=== PATIENT | male | born 1960 | race African-American/Black ===

== ENCOUNTER → 2018-03-02 12:40 | Outpatient (CLI) | payer MEDICARE ==
[2014-06-20 08:53] VITALS: BMI 29.5
[~2018-03-02 12:40] MED LIST: HYDROCODONE-APA1 TAB PO; LISINOPRIL10 MG PO; NORCO 10/325 TA1 TA1 PO; PRILOSEC20 MG PO; PROVENTIL/2.5 MG/3 M INH; TYLENOL325 MG PO
== END | disposition home or self-care (01) ==
LOC: D.CT 03-01 08:30
DX: R04.2 Hemoptysis (principal)

== ENCOUNTER 2018-06-05 09:52 | Inpatient (IN) | payer MEDICARE ==
[~2018-06-05] VITALS: Ht 182.9 cm; Wt 90.7 kg
[2018-06-05 11:12] LABS: BASOPHILS 0.3 % (0-2); EOSINOPHILS 0.2 % (0-7); HEMATOCRIT 41.1 % (42.0-54.0); HEMOGLOBIN 14.6 g/dL (13.5-17.5); IMMATURE GRANULOCYTES 0.3 % (0-5); LYMPHOCYTES 21.2 % (15-50); MCH 29.4 pg (26.0-34.0); MCHC 35.5 g/dL (31.0-37.0); MCV 82.9 fL (80.0-100.0); MEAN PLATELET VOLUME 10.4 fL (7.4-10.4); MONOCYTES 5.2 % (2-11); NEUTROPHILS 72.8 % (40-80); PLATELET COUNT 196 10x3/uL (130-400); RBC 4.96 10x6/uL (4.20-6.10); RDW 13.9 % (11.5-14.5); WBC 9.3 10x3/uL (4.8-10.8)
[2018-06-05 11:25] LABS: INR 0.94 (0.85-1.17); PROTIME 12.2 SECONDS (11.6-15.0)
[2018-06-05 11:28] LABS: ALBUMIN 4.4 g/dL (3.4-5.0); ALKALINE PHOSPHATASE 74 U/L (46-116); ALT (SGPT) 29 U/L (10-68); BILIRUBIN - TOTAL 0.85 mg/dL (0.2-1.3); CALC OSMOLALITY 271 mosm/kg (275-300); CALCIUM 9.3 mg/dL (8.5-10.1); CARBON DIOXIDE 20.6 mmol/L (21.0-32.0); CHLORIDE - SERUM 100 mmol/L (98-107); CREATININE - SERUM 0.9 mg/dL (0.6-1.3); GLUCOSE 88 mg/dL (74-106); POTASSIUM - SERUM 4.2 mmol/L (3.5-5.1); PROTEIN - SERUM 8.1 g/dL (6.4-8.2); SODIUM 136 mmol/L (136-145); UREA NITROGEN 16 mg/dL (7-18); eGFR NON AFRICAN AMERICAN > 90 mL/min (90-120)
[2018-06-05 11:30] VITALS: BP 164/90
[2018-06-05 11:41] VITALS: BP 169/92
[2018-06-05 11:42] LABS: CKMB 3.2 U/L (0.0-3.6); CREATINE KINASE 371 UL (21-232)
[2018-06-05 11:43] LABS: TROPONIN-I < 0.017 ng/mL (0.000-0.060)
[2018-06-05 12:30] VITALS: BP 163/96
[2018-06-05 14:07] LABS: CREATINE KINASE 420 UL (21-232); TROPONIN-I < 0.017 ng/mL (0.000-0.060)
[2018-06-05 14:09] LABS: CKMB 3.6 U/L (0.0-3.6)
[2018-06-05 14:41] VITALS: BP 152/93
[2018-06-05 16:08] VITALS: BP 168/84; BMI 27.2
[2018-06-05 19:44] LABS: CKMB 3.9 U/L (0.0-3.6); CREATINE KINASE 454 UL (21-232)
[2018-06-05 19:46] LABS: TROPONIN-I < 0.017 ng/mL (0.000-0.060)
[2018-06-05 21:00] VITALS: BP 136/82
[2018-06-06 01:50] LABS: CKMB 3.5 U/L (0.0-3.6); CREATINE KINASE 477 UL (21-232); TROPONIN-I < 0.017 ng/mL (0.000-0.060)
[2018-06-06 05:02] VITALS: BP 153/96
[2018-06-06 05:59] LABS: BASOPHILS 0.1 % (0-2); EOSINOPHILS 0.4 % (0-7); HEMATOCRIT 38.3 % (42.0-54.0); HEMOGLOBIN 13.4 g/dL (13.5-17.5); IMMATURE GRANULOCYTES 0.1 % (0-5); LYMPHOCYTES 27.6 % (15-50); MCH 28.8 pg (26.0-34.0); MCV 82.4 fL (80.0-100.0); MEAN PLATELET VOLUME 10.7 fL (7.4-10.4); MONOCYTES 7.4 % (2-11); NEUTROPHILS 64.4 % (40-80); PLATELET COUNT 220 10x3/uL (130-400); RBC 4.65 10x6/uL (4.20-6.10); RDW 13.6 % (11.5-14.5); WBC 11.4 10x3/uL (4.8-10.8)
[2018-06-06 06:24] LABS: ALBUMIN 3.5 g/dL (3.4-5.0); ALKALINE PHOSPHATASE 66 U/L (46-116); ALT (SGPT) 26 U/L (10-68); BILIRUBIN - TOTAL 1.37 mg/dL (0.2-1.3); CALCIUM 8.7 mg/dL (8.5-10.1); CHLORIDE - SERUM 100 mmol/L (98-107); CREATININE - SERUM 0.9 mg/dL (0.6-1.3); GLUCOSE 101 mg/dL (74-106); MAGNESIUM - SERUM 1.9 mg/dL (1.8-2.4); PHOSPHOROUS 3.6 mg/dL (2.5-4.9); POTASSIUM - SERUM 3.7 mmol/L (3.5-5.1); PROTEIN - SERUM 7.4 g/dL (6.4-8.2); SODIUM 134 mmol/L (136-145); eGFR NON AFRICAN AMERICAN > 90 mL/min (90-120)
[2018-06-06 06:31] LABS: CALC OSMOLALITY 266 mosm/kg (275-300); TROPONIN-I < 0.017 ng/mL (0.000-0.060); UREA NITROGEN 11 mg/dL (7-18)
[2018-06-06 09:44] VITALS: BP 175/92
[2018-06-06 12:35] VITALS: Ht 182.9 cm; Wt 90.7 kg
[2018-06-06 17:03] LABS: CKMB 2.3 U/L (0.0-3.6); CREATINE KINASE 421 UL (21-232)
[2018-06-06 17:06] LABS: TROPONIN-I < 0.017 ng/mL (0.000-0.060)
[2018-06-06 17:42] VITALS: BP 183/62
[2018-06-06 20:00] VITALS: BP 136/92
[2018-06-07 06:20] VITALS: BP 159/93
[2018-06-07 06:35] LABS: BASOPHILS 0.1 % (0-2); EOSINOPHILS 0.3 % (0-7); HEMATOCRIT 38.6 % (42.0-54.0); HEMOGLOBIN 13.5 g/dL (13.5-17.5); IMMATURE GRANULOCYTES 0.2 % (0-5); LYMPHOCYTES 25.6 % (15-50); MCH 28.8 pg (26.0-34.0); MCV 82.5 fL (80.0-100.0); MEAN PLATELET VOLUME 10.5 fL (7.4-10.4); MONOCYTES 9.2 % (2-11); NEUTROPHILS 64.6 % (40-80); PLATELET COUNT 213 10x3/uL (130-400); RBC 4.68 10x6/uL (4.20-6.10); RDW 13.7 % (11.5-14.5); WBC 9.7 10x3/uL (4.8-10.8)
[2018-06-07 06:55] LABS: ALBUMIN 3.5 g/dL (3.4-5.0); ALKALINE PHOSPHATASE 65 U/L (46-116); ALT (SGPT) 23 U/L (10-68); CALC OSMOLALITY 270 mosm/kg (275-300); CALCIUM 8.6 mg/dL (8.5-10.1); CARBON DIOXIDE 25.3 mmol/L (21.0-32.0); CHLORIDE - SERUM 102 mmol/L (98-107); CREATININE - SERUM 0.7 mg/dL (0.6-1.3); GLUCOSE 105 mg/dL (74-106); MAGNESIUM - SERUM 1.9 mg/dL (1.8-2.4); POTASSIUM - SERUM 3.9 mmol/L (3.5-5.1); PROTEIN - SERUM 7.4 g/dL (6.4-8.2); SODIUM 136 mmol/L (136-145); UREA NITROGEN 10 mg/dL (7-18); eGFR NON AFRICAN AMERICAN > 90 mL/min (90-120)
[2018-06-07 09:33] VITALS: BP 180/80
[2018-06-07] MEDS ORDERED: COLACE100 MG PO (12:22)
[2018-06-07] MEDS ORDERED: NORCO 10-325 TA1 TAB PO (12:24)
[2018-06-07 14:17] VITALS: BP 141/92
== END 2018-06-07 15:08 | disposition home or self-care (01) | DRG 185 ==
LOC: D.ER 09:52 → D.EDHOLD 12:57 → D.MS 15:10
PROVIDERS: Family Medicine
DX: S22.41XA Multiple fractures of ribs, right side, initial encounter for closed fracture (principal); V47.6XXA Car passenger injured in collision with fixed or stationary object in traffic accident, initial encounter; R07.89 Other chest pain; I10 Essential (primary) hypertension; J44.9 Chronic obstructive pulmonary disease, unspecified; K21.9 Gastro-esophageal reflux disease without esophagitis; Z87.891 Personal history of nicotine dependence

== ENCOUNTER 2019-01-21 14:30 | Emergency (ER) | payer MEDICARE ==
[~2019-01-21] VITALS: Ht 182.9 cm; Wt 91.8 kg
[~2019-01-21 14:30] MED LIST changes: +COLACE100 MG PO; +NORCO 10-325 TA1 TAB PO
[2019-01-21 14:33] VITALS: Ht 182.9 cm; Wt 91.8 kg
[2019-01-21 15:06] LABS: BASOPHILS 0.4 % (0-2); EOSINOPHILS 0.7 % (0-7); HEMATOCRIT 40.6 % (42.0-54.0); HEMOGLOBIN 14.2 g/dL (13.5-17.5); IMMATURE GRANULOCYTES 0.1 % (0-5); LYMPHOCYTES 37.3 % (15-50); MCH 28.7 pg (26.0-34.0); MCV 82.2 fL (80.0-100.0); MEAN PLATELET VOLUME 10.5 fL (7.4-10.4); MONOCYTES 6.9 % (2-11); NEUTROPHILS 54.6 % (40-80); PLATELET COUNT 209 10x3/uL (130-400); RBC 4.94 10x6/uL (4.20-6.10); RDW 13.4 % (11.5-14.5); WBC 8.6 10x3/uL (4.8-10.8)
[2019-01-21 15:38] LABS: ALBUMIN 3.9 g/dL (3.4-5.0); ALKALINE PHOSPHATASE 82 U/L (46-116); ALT (SGPT) 27 U/L (10-68); BILIRUBIN - TOTAL 0.66 mg/dL (0.2-1.3); CALC OSMOLALITY 259 mosm/kg (275-300); CALCIUM 8.9 mg/dL (8.5-10.1); CARBON DIOXIDE 23.2 mmol/L (21.0-32.0); CHLORIDE - SERUM 99 mmol/L (98-107); CREATININE - SERUM 0.8 mg/dL (0.6-1.3); GLUCOSE 96 mg/dL (74-106); POTASSIUM - SERUM 4.1 mmol/L (3.5-5.1); PROTEIN - SERUM 7.8 g/dL (6.4-8.2); SODIUM 130 mmol/L (136-145); UREA NITROGEN 9 mg/dL (7-18); eGFR NON AFRICAN AMERICAN > 90 mL/min (90-120)
[2019-01-21 16:04] LABS: UDS - AMPHET NEGATIVE QUAL (NEGATIVE); UDS - BARB NEGATIVE QUAL (NEGATIVE); UDS - BENZO NEGATIVE QUAL (NEGATIVE); UDS - COCAINE NEGATIVE QUAL (NEGATIVE); UDS - OPIATE NEGATIVE QUAL (NEGATIVE); UDS - PCP NEGATIVE QUAL (NEGATIVE); UDS - THC POSITIVE QUAL (NEGATIVE)
[2019-01-21 16:05] LABS: CKMB 2.1 U/L (0.0-3.6); CREATINE KINASE 288 UL (21-232); TROPONIN-I < 0.017 ng/mL (0.000-0.060)
[2019-01-21 16:28] LABS: APPEARANCE CLEAR (CLEAR); BILIRUBIN NEGATIVE (NEGATIVE); COLOR YELLOW (YELLOW); GLUCOSE NEGATIVE (NEGATIVE); KETONE NEGATIVE (NEGATIVE); NITRITE NEGATIVE (NEGATIVE); PROTEIN NEGATIVE (NEGATIVE); UROBILINOGEN NORMAL (NORMAL)
[2019-01-21 16:32] LABS: BACTERIA FEW /hpf (NONE SEEN); WHITE CELLS - URINE 0-5 /hpf (0-5)
[2019-01-21 17:37] VITALS: BP 163/97
== END 2019-01-21 17:24 | disposition home or self-care (01) ==
LOC: D.ER 14:30
PROVIDERS: Family Medicine
DX: R55 Syncope and collapse (principal); V49.9XXA Car occupant (driver) (passenger) injured in unspecified traffic accident, initial encounter; Y92.410 Unspecified street and highway as the place of occurrence of the external cause

== ENCOUNTER 2019-03-04 11:41 | Inpatient (IN) | payer MEDICARE ==
[~2019-03-04] VITALS: Ht 182.9 cm; Wt 83.9 kg
[2019-03-04 12:09] LABS: BASOPHILS 0.1 % (0-2); EOSINOPHILS 0.2 % (0-7); HEMATOCRIT 37.8 % (42.0-54.0); HEMOGLOBIN 13.5 g/dL (13.5-17.5); IMMATURE GRANULOCYTES 0.3 % (0-5); LYMPHOCYTES 19.8 % (15-50); MCH 28.9 pg (26.0-34.0); MCHC 35.7 g/dL (31.0-37.0); MCV 80.9 fL (80.0-100.0); MEAN PLATELET VOLUME 10.1 fL (7.4-10.4); MONOCYTES 6.4 % (2-11); NEUTROPHILS 73.2 % (40-80); PLATELET COUNT 204 10x3/uL (130-400); RBC 4.67 10x6/uL (4.20-6.10); RDW 13.3 % (11.5-14.5); WBC 10.7 10x3/uL (4.8-10.8)
[2019-03-04 12:27] LABS: ALBUMIN 3.6 g/dL (3.4-5.0); ALKALINE PHOSPHATASE 81 U/L (46-116); ALT (SGPT) 27 U/L (10-68); CALCIUM 8.9 mg/dL (8.5-10.1); CARBON DIOXIDE 23.7 mmol/L (21.0-32.0); CHLORIDE - SERUM 103 mmol/L (98-107); CREATININE - SERUM 0.8 mg/dL (0.6-1.3); GLUCOSE 106 mg/dL (74-106); PROTEIN - SERUM 7.2 g/dL (6.4-8.2); SODIUM 136 mmol/L (136-145); eGFR NON AFRICAN AMERICAN > 90 mL/min (90-120)
[2019-03-04 12:34] LABS: CALC OSMOLALITY 270 mosm/kg (275-300); UREA NITROGEN 10 mg/dL (7-18)
[2019-03-04 13:38] VITALS: BP 169/106
[2019-03-04 14:48] VITALS: BP 185/106
--- NOTE | 2019-03-04 14:50 | NUR ---
DR DOMINIC NYE FOR ELEVATED BP AND RUANO
--- NOTE | 2019-03-04 14:52 | NUR ---
REPORT CALLED TO [facility]ANDANA SPRING BY SBAR FORMAT
--- NOTE | 2019-03-04 15:10 | NUR ---
TRANSPORTED TO FLOOR VIA , CONDITION STABLE
[2019-03-04] MEDS ORDERED: COZAAR25 MG PO (15:13)
[2019-03-04 15:22] VITALS: BP 162/89; BMI 25.1
--- NOTE | 2019-03-04 16:37 | NUR ---
NEURO CHECKS WNL. BILAT SCDS ON ORDERED. WILL CONT. PLAN OF CARE.
--- NOTE | 2019-03-04 19:12 | NUR ---
EVENING ROUNDS MADE. PT DENIES PAIN AT THIS TIME. PT STATED HE NEEDED TO GO TO THE BATHROOM. ASSISTED THE PT TO THE BATHROOM WITH STAND BY ASSIST DUE TO FALL RISK/FALL HX. PT ASSISTED BACK TO BED AND RECONNECTED TO SCD. DENIES FURTHER COMPLAINTS AT THIS TIME. FALL PRECAUTIONS IN PLACE. WHITE BED ALARM ON. YELLOW GOWN ON. NON SKID SOCKS IN PLACE. BED LOWERED AND LOCKED. CL IN REACH. WILL CTM.
[2019-03-04 20:00] VITALS: BP 137/92
--- NOTE | 2019-03-04 20:48 | NUR ---
VITALS STABLE. PT LAYING IN BED RESTING. JAY FROM RT NOTIFIED ME THAT SHE PUT PT ON 2L O2 VIA NC DUE TO PT STATING THAT HE WEARS O2 AT NIGHT AT HOME. ALSO GAVE PT A CLEAN URINAL AND INFORMED PT THAT I NEEDED TO COLLECT A URINE SAMPLE TO USE THE URINAL AND LET ME KNOW SOON HE DOES. PT AGREED WITH POC. NO FURTHER CONCERNS AT THIS TIME. FALL PRECAUTIONS IN PLACE. BED LOWERED AND LOCKED. CL IN REACH. NON SKID SOCKS ON, YELLOW GOWN ON. WILL CTM.
[2019-03-04 21:51] LABS: APPEARANCE CLEAR (CLEAR); BILIRUBIN NEGATIVE (NEGATIVE); COLOR YELLOW (YELLOW); GLUCOSE NEGATIVE (NEGATIVE); KETONE NEGATIVE (NEGATIVE); NITRITE NEGATIVE (NEGATIVE); PROTEIN NEGATIVE (NEGATIVE); UROBILINOGEN NORMAL (NORMAL)
[2019-03-04 21:54] LABS: BACTERIA FEW /hpf (NONE SEEN); RED CELLS - URINE OCC /hpf (0-5); WHITE CELLS - URINE 0-5 /hpf (0-5)
[2019-03-04 21:56] LABS: UDS - AMPHET NEGATIVE QUAL (NEGATIVE); UDS - BARB NEGATIVE QUAL (NEGATIVE); UDS - BENZO NEGATIVE QUAL (NEGATIVE); UDS - COCAINE NEGATIVE QUAL (NEGATIVE); UDS - OPIATE NEGATIVE QUAL (NEGATIVE); UDS - PCP NEGATIVE QUAL (NEGATIVE); UDS - THC POSITIVE QUAL (NEGATIVE)
[2019-03-04 22:31] LABS: CREATINE KINASE 497 UL (21-232); TROPONIN-I < 0.017 ng/mL (0.000-0.060)
[2019-03-05] VITALS (9 sets, daily range): BP systolic 120–185; BP diastolic 63–104; Ht 182.9 cm; Wt 83.9 kg
--- NOTE | 2019-03-05 04:21 | NUR ---
ORTHOSTATIC BP LAYING 143/87 SITTING 139/90 STANDING 149/104
[2019-03-05 04:39] LABS: BASOPHILS 0.2 % (0-2); HEMATOCRIT 35.6 % (42.0-54.0); HEMOGLOBIN 12.5 g/dL (13.5-17.5); IMMATURE GRANULOCYTES 0.1 % (0-5); MCH 28.5 pg (26.0-34.0); MCHC 35.1 g/dL (31.0-37.0); MCV 81.3 fL (80.0-100.0); MEAN PLATELET VOLUME 10.8 fL (7.4-10.4); NEUTROPHILS 48.7 % (40-80); PLATELET COUNT 214 10x3/uL (130-400); RBC 4.38 10x6/uL (4.20-6.10); RDW 13.3 % (11.5-14.5); WBC 8.7 10x3/uL (4.8-10.8)
[2019-03-05 05:11] LABS: CALC OSMOLALITY 276 mosm/kg (275-300); CALCIUM 8.4 mg/dL (8.5-10.1); CARBON DIOXIDE 25.8 mmol/L (21.0-32.0); CHLORIDE - SERUM 104 mmol/L (98-107); CHOL - HDL RATIO 2.9 ratio (2.3-4.9); CHOLESTEROL, TOTAL 117 mg/dL (0-200); CKMB 3.1 U/L (0.0-3.6); CREATINE KINASE 472 UL (21-232); CREATININE - SERUM 0.9 mg/dL (0.6-1.3); GLUCOSE 110 mg/dL (74-106); HDL CHOLESTEROL 41 mg/dL (32-96); LDL CHOLESTEROL 61 mg/dL (0-100); LDL-HDL RATIO 1.5 ratio (1.5-3.5); MAGNESIUM - SERUM 1.9 mg/dL (1.8-2.4); PHOSPHOROUS 4.1 mg/dL (2.5-4.9); POTASSIUM - SERUM 3.4 mmol/L (3.5-5.1); SODIUM 139 mmol/L (136-145); THYROID STIMULATING HORMONE 1.54 uIU/mL (0.36-3.74); TRIGLYCERIDE 78 mg/dL (30-200); TROPONIN-I < 0.017 ng/mL (0.000-0.060); UREA NITROGEN 8 mg/dL (7-18); eGFR NON AFRICAN AMERICAN > 90 mL/min (90-120)
--- NOTE | 2019-03-05 10:00 | NUR ---
ALERT AND ORIENTED X4. SITTING UP IN BED. 20G SITED TO LT HAND FOR CTA. NOTIFY RUSSELL, RT IV PLACED. DENIES ANY NEEDS AT THIS TIME. DENIES DIZZINESS. REFUSE NICOTINE PATCH. PATIENT STATES, "I DON'T SMOKE." CONTINUE PLAN OF CARE AND SAFETY PRECAUTIONS.
[2019-03-05 10:33] LABS: CKMB 2.1 U/L (0.0-3.6); CREATINE KINASE 422 UL (21-232)
[2019-03-05 10:44] LABS: POTASSIUM - SERUM 4.2 mmol/L (3.5-5.1); TROPONIN-I < 0.017 ng/mL (0.000-0.060)
--- NOTE | 2019-03-05 19:05 | NUR ---
PT WILL GET UP FOR SHOWER AND REQUEST ONE IV SITE REMOVED BED LOW AND LOCKED SRX2 AND CALL LIGHT IS IN REACH
--- NOTE | 2019-03-05 19:52 | NUR ---
REMOVED IV FROM RIGHT HAND CATH INTACT AND BANDAGE WITH GAUZE AFTER HOLDING PRESSURE
[2019-03-06] VITALS: BP 157/92
--- NOTE | 2019-03-06 01:51 | NUR ---
I have reviewed this patient and I concur with the Shift Assessment completed by the Licensed Practical Nurse today this shift.
[2019-03-06 04:00] VITALS: BP 148/88
[2019-03-06 06:01] LABS: BASOPHILS 0.2 % (0-2); EOSINOPHILS 1.7 % (0-7); HEMATOCRIT 36.3 % (42.0-54.0); HEMOGLOBIN 12.9 g/dL (13.5-17.5); IMMATURE GRANULOCYTES 0.1 % (0-5); LYMPHOCYTES 37.9 % (15-50); MCH 28.6 pg (26.0-34.0); MCHC 35.5 g/dL (31.0-37.0); MCV 80.5 fL (80.0-100.0); MEAN PLATELET VOLUME 10.7 fL (7.4-10.4); MONOCYTES 8.2 % (2-11); NEUTROPHILS 51.9 % (40-80); PLATELET COUNT 222 10x3/uL (130-400); RBC 4.51 10x6/uL (4.20-6.10); RDW 13.2 % (11.5-14.5)
[2019-03-06 06:08] LABS: CALC OSMOLALITY 276 mosm/kg (275-300); CALCIUM 8.7 mg/dL (8.5-10.1); CARBON DIOXIDE 24.8 mmol/L (21.0-32.0); CHLORIDE - SERUM 105 mmol/L (98-107); CREATININE - SERUM 0.8 mg/dL (0.6-1.3); GLUCOSE 96 mg/dL (74-106); POTASSIUM - SERUM 3.8 mmol/L (3.5-5.1); SODIUM 139 mmol/L (136-145); UREA NITROGEN 10 mg/dL (7-18); eGFR NON AFRICAN AMERICAN > 90 mL/min (90-120)
--- NOTE | 2019-03-06 07:30 | NUR ---
A/A/OX4. DENIES ANY PAIN AT PRESENT TIME AND VOICES NO REQUESTS. HOPING TO BE DISCHARGED TODAY. ASSESSMENT COMPLETED AND WILL CONTINUE POC. CALL LIGHT IN REACH.
[2019-03-06 09:40] VITALS: BP 174/96
[2019-03-06] MEDS ORDERED: FLAGYL500 MG PO (10:05)
--- NOTE | 2019-03-06 13:01 | NUR ---
DISCHARGE INSTRUCTIONS REVIEWED WITH PT ALONG WITH INSTRUCTIONS REGARDING THE TRICHOMONIASIS AND VERBALIZES UNDERSTANDING. SL REMOVED FROM RIGHT HAND WITH TIP OF CATH INTACT. LEFT FLOOR VIA W/C WITH ALL PERSONAL BELONGINGS AND LEFT FACILITY VIA PRIVATE CAR WITH A FRIEND.
--- NOTE | 2019-03-06 14:20 | MORECARE ---
CASE MANAGEMENT DISCHARGE SUMMARY PATIENT: BLAZE HARDY UNIT: [id number] ADM DATE: 03/05/19 AGE: 58 : 62 SEX: M ROOM/BED: D.2113 AUTHOR: KIAN LAWS PHYSICIAN: REFERRING PHYSICIAN: NENO ALFARO MD DATE OF SERVICE: 03/06/19 Discharge Plan Patient Name: BLAZE HARDY Facility: [facility]:[place] : 1960 Planned Disposition: Home Anticipated Discharge Date: 03/06/19 Discharge Date: 03/06/2019 Expected LOS: 1 Initial Reviewer: [email or web address] Initial Review Date: 03/06/2019 Generated: 03/06/19 3:20 pm DCPIA - Discharge Planning Initial Assessment Updated by [email or web address]: Simon Pool on 03/06/19 2:18 pm * Is the patient Alert and Oriented? Yes * How many steps to enter\exit or inside your home? NONE * PCP [facility] * [facility]acy [facility] * Preadmission Environment Home with Family * ADLs Independent * Equipment Nebulizer Oxygen * Other Equipment HOME OXYGEN AT NIGHT ONLY UNKNOWN PROVIDER * List name and contact numbers for known caregivers / representatives who currently or will assist patient after discharge: BROOKLYN HARDY, MOM, * Verbal permission to speak to the caregivers and representatives has been obtained from the patient. N/A * Community resources currently utilized None * Please name any agencies selected above. NONE * Additional services required to return to the preadmission environment? No * Can the patient safely return to the preadmission environment? Yes * Has this patient been hospitalized within the prior 30 days at any hospital? No Patient Name: BLAZE HARDY Page [id number] at 1420 All edits/amendments must be made on the electronic document DICTATION DATE: 03/06/191418 SPEECH WRITER: ROMAINE 03/06/19 141 RPT#: [id number] DC DATE:03/06/19 STATUS: DIS IN [facility] [address] [place] [address] END OF REPORT
--- NOTE | 2019-03-06 14:27 | MORECARE ---
CASE MANAGEMENT DISCHARGE SUMMARY PATIENT: BLAZE HARDY UNIT: [id number] ADM DATE: 03/05/19 AGE: 58 : 62 SEX: M ROOM/BED: D.2113 AUTHOR: EUSEBIA,DOC PHYSICIAN: REFERRING PHYSICIAN: NENO ALFARO MD DATE OF SERVICE: 03/06/19 Discharge Plan Patient Name: BLAZE HARDY Facility: [facility]:[place] : 1960 Planned Disposition: Home Anticipated Discharge Date: 03/06/19 Discharge Date: 03/06/2019 Expected LOS: 1 Initial Reviewer: [email or web address] Initial Review Date: 03/06/2019 Generated: 03/06/19 3:27 pm Comments DCP- Discharge Planning Updated by [email or web address]: Simon Box on 03/06/19 1:[address] Patient Name: BLAZE HARDY Encounter No: [id number] : 1960 Primary Insurance: MEDICARE A & B Anticipated DC Date: 03-06-2019 Planned Disposition: Home DISCHARGE PLANNING NOTE: CM MET WITH PT IN ROOM TO DISCUSS DISCHARGE PLANNING AND NEEDS. PT REPORTS LIVING AT HOME INDEPENDENTLY WITH HIS MOTHER. PT HAS NEBULIZER AND HOME OXYGEN HE USES AT NIGHT, PT DOES NOT KNOW WHO PROVIDES HIS MEDICAL EQUIPMENT. PT HAS NO OUTSIDE SERVICES ASSISTING IN THE HOME. CM DISCUSSED AVAILABILITY OF HOME HEALTH, REHAB SERVICES AND MEDICAL EQUIPMENT. PT DENIES DISCHARGE NEEDS, REPORTS HIS MOM WILL PICK HIM UP FOR DISCHARGE HOME. CM DISCUSSED ABTAINING FROM SEX UNTIL TREATMENT IS COMPLETED AND ALSO DISCUSSED PROTECTED SEX AND HOW TO OBTAIN FREE CONDOMS FROM [facility]. SIMON BOX, CASE MANAGEMENT DCPIA - Discharge Planning Initial Assessment Updated by [email or web address]: Simon Box on 03/06/19 2:18 pm * Is the patient Alert and Oriented? Yes * How many steps to enter\exit or inside your home? NONE * PCP [facility] * [facility]acy [facility] * Preadmission Environment Home with Family * ADLs Independent * Equipment Nebulizer Oxygen * Other Equipment HOME OXYGEN AT NIGHT ONLY UNKNOWN PROVIDER * List name and contact numbers for known caregivers / representatives who currently or will assist patient after discharge: BROOKLYN HARDY MOM, * Verbal permission to speak to the caregivers and representatives has been obtained from the patient. N/A * Community resources currently utilized None * Please name any agencies selected above. NONE * Additional services required to return to the preadmission environment? No * Can the patient safely return to the preadmission environment? Yes * Has this patient been hospitalized within the prior 30 days at any hospital? No Last DP export: 03/06/19 1:20 pm Patient Name: BLAZE HARDY Page [phone] at 1427 All edits/amendments must be made on the electronic document DICTATION DATE: 03/06/196 [facility]ITY [facility] NURSING DIRECTOR: ROMAINE 03/06/19 1426 RPT#: [id number] DC DATE:03/06/19 STATUS: DIS IN [facility] [address] [place] [address] END OF REPORT
== END 2019-03-06 13:04 | disposition home or self-care (01) | DRG 68 ==
LOC: D.ER 11:41 → D.M2 14:00 → OBSVTIME 14:18 → D.M2 03-05 13:25
PROVIDERS: Family Medicine; ADMIT Internal Medicine Nephrology; ATTEND Internal Medicine Nephrology
DX: I65.23 Occlusion and stenosis of bilateral carotid arteries (principal); R55 Syncope and collapse; S00.03XA Contusion of scalp, initial encounter; I10 Essential (primary) hypertension; D64.9 Anemia, unspecified; E87.6 Hypokalemia; A59.9 Trichomoniasis, unspecified; F12.20 Cannabis dependence, uncomplicated; W01.0XXA Fall on same level from slipping, tripping and stumbling without subsequent striking against object, initial encounter